=== PATIENT | female | born 1980 | race African-American/Black ===

== ENCOUNTER 2018-07-09 07:22 | Inpatient (IN) | payer OTHER, MEDICAID ==
[~2018-07-09] VITALS: Ht 160 cm; Wt 90.7 kg
[2018-07-09] MEDS ORDERED: PREN-142 PO (07:49)
[2018-07-09] MEDS ORDERED: FERR325T6 MT (07:50)
[2018-07-09] MEDS ORDERED: FOLI-43 PO (07:51)
[2018-07-09] MEDS ORDERED: ALD500 GT (07:52)
[2018-07-09] MEDS ORDERED: METHYLDOPA 250MG TABLET PO SCH (08:30)
[2018-07-09] MEDS: PRENATAL VIT/FE FUMARATE/FA TABLET PO SCH (08:41)
[2018-07-09 08:43] LABS: HEMATOCRIT 36.3 % (36.0-48.0); HEMOGLOBIN 12.3 g/dL (12.0-16.0); MEAN CORPUSCULAR HEMOGLOBIN 28.4 pg (28.0-32.0); MEAN CORPUSCULAR VOLUME 84.1 fL (81.0-99.0); PLATELET 117 x1000/uL (130-400); RED BLOOD CELL COUNT 4.31 mill/uL (4.2-5.4); RED CELL DISTRIBUTION WIDTH 14.7 % (11.6-14.6)
[2018-07-09] MEDS: FOLIC ACID 1MG TABLET PO SCH (09:00)
[2018-07-09] MEDS ORDERED: FOLIC ACID/VITAMIN B COMP W-C TABLET PO SCH (09:00)
[2018-07-09 09:01] LABS: CHLORIDE 107 mEq/L (98-107)
[2018-07-09 09:02] LABS: D-DIMER 7.91 mg/L FEU (<0.50); INR 0.9; PARTIAL THROMBOPLASTIN TIME 27.5 sec (23.4-31.0); PROTHROMBIN TIME 9.1 sec (9.1-11.1)
[2018-07-09 09:08] LABS: CLARITY URINE TURBID (CLEAR); COLOR URINE YELLOW (YELLOW); KETONES URINE NEGATIVE (NEGATIVE); LEUKOCYTE ESTERASE URINE 2+ (NEGATIVE); NITRITE URINE NEGATIVE (NEGATIVE); OCCULT BLOOD URINE 2+ (NEGATIVE); PROTEIN URINE 4+ (NEGATIVE); SPECIFIC GRAVITY URINE 1.029 (1.005-1.030)
[2018-07-09] MEDS ORDERED: NIFEDIPINE 10MG CAPSULE PO NR (11:15)
[2018-07-09] MEDS ORDERED: METHYLDOPA 500MG TABLET PO SCH (14:00)
[2018-07-09] MEDS: LACTATED RINGERS 1,000 ML IV SCH (15:14)
[2018-07-09 17:37] LABS: CHLORIDE 105 mEq/L (98-107)
[2018-07-09 17:51] LABS: D-DIMER 7.8 mg/L FEU (<0.50); INR 0.9; PARTIAL THROMBOPLASTIN TIME 28.7 sec (23.4-31.0); PROTHROMBIN TIME 9.3 sec (9.1-11.1)
[2018-07-09] MEDS: METHYLDOPA 250MG TABLET PO SCH (20:23)
[2018-07-09] MEDS: ACETAMINOPHEN 325MG TABLET PO PRN (20:24)
[2018-07-10] MEDS: ACETAMINOPHEN 325MG TABLET PO PRN ×4 (02:49→23:01)
[2018-07-10] MEDS: FERROUS SULFATE 325MG TABLET PO SCH (08:24)
[2018-07-10] MEDS: LACTATED RINGERS 1,000 ML IV SCH (08:24)
[2018-07-10] MEDS: PRENATAL VIT/FE FUMARATE/FA TABLET PO SCH (08:24)
[2018-07-10] MEDS: METHYLDOPA 250MG TABLET PO SCH ×2 (08:29→20:27)
[2018-07-10] MEDS: BETAMETHASONE ACET/BETAMET 30 MG/5 ML VIAL IM SCH (10:26)
[2018-07-10 12:24] LABS: CHLORIDE 108 mEq/L (98-107)
[2018-07-10 12:34] LABS: BASOPHILS % 0.5 % (0.0-2.0); EOSINOPHILS % 2.4 % (0.0-5.0); HEMATOCRIT. 32.8 % (36.0-48.0); LYMPHOCYTES % 21.5 % (20.0-50.0); MEAN CORPUSCULAR HEMOGLOBIN 28.7 pg (28.0-32.0); MEAN CORPUSCULAR VOLUME 85.4 fL (81.0-99.0); MEAN PLATELET VOLUME 8.1 fl (7.4-10.4); MONOCYTES % 10.9 % (2.0-8.0); NEUTROPHILS % 64.7 % (40.0-76.0); PLATELET 60 x1000/uL (130-400); RED BLOOD CELL COUNT 3.84 mill/uL (4.2-5.4); RED CELL DISTRIBUTION WIDTH 15.2 % (11.6-14.6)
[2018-07-10 12:38] LABS: D-DIMER 12.69 mg/L FEU (<0.50); INR 0.9; PARTIAL THROMBOPLASTIN TIME 27.2 sec (23.4-31.0); PROTHROMBIN TIME 9.4 sec (9.1-11.1)
[2018-07-10 13:07] LABS: PLATELET ESTIMATE DECREASED
[2018-07-10] MEDS ORDERED: MAGNESIUM 4 G PREMIX 100 ML IV NR (13:30)
[2018-07-10] MEDS ORDERED: MAGNESIUM 20 G PREMIX (L & D) 500 ML IV ONE (13:34)
[2018-07-10] MEDS: MAGNESIUM 20 G PREMIX (L & D) 500 ML IV SCH ×2 (13:35→20:29)
[2018-07-10 16:28] LABS: *AMPHETAMINES SCREEN URINE NEGATIVE (NEGATIVE); *BARBITURATES SCREEN URINE NEGATIVE (NEGATIVE); *BENZODIAZEPINES SCREEN URINE NEGATIVE (NEGATIVE); *COCAINE SCREEN URINE NEGATIVE (NEGATIVE); METHADONE URINE SCREEN NEGATIVE (NEGATIVE); OPIATES URINE SCREEN NEGATIVE (NEGATIVE); PHENCYCLIDINE URINE SCREEN NEGATIVE (NEGATIVE)
[2018-07-10 16:59] LABS: CANNABINOID URINE SCREEN PRESUMTIVE POSITIVE (NEGATIVE)
[2018-07-10 19:18] LABS: HEPATITIS B SURFACE ANTIGEN NEGATIVE
[2018-07-11] MEDS: LACTATED RINGERS 1,000 ML IV SCH ×2 (01:00→11:55)
[2018-07-11] MEDS: ACETAMINOPHEN 325MG TABLET PO PRN ×2 (05:24→17:34)
[2018-07-11] MEDS: FERROUS SULFATE 325MG TABLET PO SCH ×2 (08:48→21:06)
[2018-07-11] MEDS: FOLIC ACID 1MG TABLET PO SCH (08:49)
[2018-07-11] MEDS: PRENATAL VIT/FE FUMARATE/FA TABLET PO SCH (08:49)
[2018-07-11] MEDS: METHYLDOPA 250MG TABLET PO SCH ×2 (09:07→21:07)
[2018-07-11] MEDS: BETAMETHASONE ACET/BETAMET 30 MG/5 ML VIAL IM SCH (10:17)
[2018-07-11 11:38] LABS: HEMATOCRIT 34.7 % (36.0-48.0); HEMOGLOBIN 11.9 g/dL (12.0-16.0); MEAN CORPUSCULAR HEMOGLOBIN 28.7 pg (28.0-32.0); RED BLOOD CELL COUNT 4.13 mill/uL (4.2-5.4); RED CELL DISTRIBUTION WIDTH 15.2 % (11.6-14.6)
[2018-07-11 11:43] LABS: PLATELET 105 x1000/uL (130-400)
[2018-07-11 14:01] LABS: FIBRINOGEN 602 mg/dL (200-400); INR 0.9; PARTIAL THROMBOPLASTIN TIME 27.5 sec (23.4-31.0)
[2018-07-11 14:08] LABS: PROTHROMBIN TIME < 9.0 sec (9.1-11.1)
[2018-07-11] MEDS ORDERED: MISOPROSTOL 100MCG TABLET VG PRN (15:00)
[2018-07-11] MEDS: MAGNESIUM 20 G PREMIX (L & D) 500 ML IV SCH ×2 (17:00→18:11)
[2018-07-11] MEDS: MISOPROSTOL 100MCG TABLET VG SCH (19:57)
[2018-07-12] MEDS: ACETAMINOPHEN 325MG TABLET PO PRN (00:17)
[2018-07-12] MEDS: LACTATED RINGERS 1,000 ML IV SCH ×2 (00:29→12:09)
[2018-07-12] MEDS: MISOPROSTOL 100MCG TABLET VG SCH ×2 (00:31→04:14)
[2018-07-12] MEDS: BUTORPHANOL TARTRATE 2 MG/ML VIAL IV PRN ×2 (02:14→06:13)
[2018-07-12] MEDS: DEXT 5%/LR + PITOCIN 20UNITS/L 1,000 ML IV SCH ×2 (05:52→15:26)
[2018-07-12] MEDS: METHYLDOPA 250MG TABLET PO SCH ×2 (08:58→20:55)
[2018-07-12] MEDS: PRENATAL VIT/FE FUMARATE/FA TABLET PO SCH (08:59)
[2018-07-12] MEDS: FOLIC ACID 1MG TABLET PO SCH (08:59)
[2018-07-12] MEDS: FERROUS SULFATE 325MG TABLET PO SCH (08:59)
[2018-07-12] MEDS ORDERED: BUPIVACAINE HCL/NS/PF EPIDURAL 100 ML EP ONE (10:45)
[2018-07-12] MEDS ORDERED: FENTANYL CITRATE/PF 50MCG/ML 2ML VIAL ONE (14:22)
[2018-07-12] MEDS ORDERED: PROPOFOL 200MG/20ML VIAL IV ONE (14:59)
[2018-07-12] MEDS ORDERED: ONDANSETRON HCL 4MG/2ML INJ ONE (15:09)
[2018-07-12] MEDS ORDERED: MIDAZOLAM HCL 2 MG/2 ML VIAL ONE (15:10)
[2018-07-12] MEDS ORDERED: MAGNESIUM 20 G PREMIX (L & D) 500 ML IV SCH (15:26)
[2018-07-12] MEDS ORDERED: LANOLIN OINT 0.25 GM TUBE TOP PRN (15:30)
[2018-07-12] MEDS ORDERED: ONDANSETRON HCL 4MG/2ML INJ IV PRN ×2 (15:30→16:00)
[2018-07-12] MEDS ORDERED: BISACODYL 10MG SUPP PR PRN (15:30)
[2018-07-12] MEDS ORDERED: HEMORRHOIDAL SUPP PR PRN (15:30)
[2018-07-12 15:59] LABS: CHLORIDE 104 mEq/L (98-107)
[2018-07-12] MEDS ORDERED: DIPHENHYDRAMINE 50MG/ML VIAL IV PRN (16:00)
[2018-07-12] MEDS ORDERED: HYDROMORPHONE HCL/PF 2MG/ML CPJ IV PRN (16:00)
[2018-07-12] MEDS ORDERED: MEPERIDINE HCL/PF 25MG/ML CPJ IV PRN (16:00)
[2018-07-12] MEDS ORDERED: KETOROLAC 30MG/ML VIAL IV PRN (16:00)
[2018-07-12] MEDS: MAGNESIUM 20 G PREMIX (L & D) 500 ML IV SCH (17:09)
[2018-07-12] MEDS: KETOROLAC 30MG/ML VIAL IV SCH (17:58)
[2018-07-12 18:55] VITALS: BP 157/91
[2018-07-12 21:00] VITALS: BP 158/90
[2018-07-12] MEDS ORDERED: DIPHENHYDRAMINE 25MG CAPSULE PO PRN (21:00)
[2018-07-13] VITALS (8 sets, daily range): BP systolic 135–158; BP diastolic 80–96
[2018-07-13] MEDS: DEXT 5%/LR + PITOCIN 20UNITS/L 1,000 ML IV SCH (05:53)
[2018-07-13] MEDS: KETOROLAC 30MG/ML VIAL IV SCH ×3 (05:55→12:17)
[2018-07-13] MEDS ORDERED: FERROUS SULFATE 325MG TABLET PO SCH (07:30)
[2018-07-13] MEDS: FERROUS SULFATE 325MG TABLET PO SCH ×3 (08:23→17:45)
[2018-07-13] MEDS: SIMETHICONE 80MG TABLET CHEW PO SCH ×3 (08:23→17:41)
[2018-07-13] MEDS: PRENATAL VIT/FE FUMARATE/FA TABLET PO SCH (08:23)
[2018-07-13] MEDS: ACETAMINOPHEN 325MG TABLET PO PRN ×2 (08:24→15:10)
[2018-07-13] MEDS: FOLIC ACID 1MG TABLET PO SCH (08:24)
[2018-07-13] MEDS: METHYLDOPA 250MG TABLET PO SCH ×2 (08:26→21:28)
[2018-07-13] MEDS ORDERED: PRENATAL VIT/FE FUMARATE/FA TABLET PO SCH (09:00)
[2018-07-13 10:05] LABS: BASOPHILS % 0.1 % (0.0-2.0); EOSINOPHILS % 0.1 % (0.0-5.0); HEMATOCRIT. 34.1 % (36.0-48.0); HEMOGLOBIN. 11.2 g/dL (12.0-16.0); LYMPHOCYTES % 11.9 % (20.0-50.0); MEAN CORPUSCULAR HEMOGLOBIN 28.1 pg (28.0-32.0); MEAN CORPUSCULAR VOLUME 85.4 fL (81.0-99.0); MEAN PLATELET VOLUME 8.2 fl (7.4-10.4); MONOCYTES % 7.8 % (2.0-8.0); NEUTROPHILS % 80.1 % (40.0-76.0); PLATELET 140 x1000/uL (130-400); RED BLOOD CELL COUNT 3.99 mill/uL (4.2-5.4); RED CELL DISTRIBUTION WIDTH 15.2 % (11.6-14.6)
[2018-07-13] MEDS: MAGNESIUM 20 G PREMIX (L & D) 500 ML IV SCH (10:10)
[2018-07-13] MEDS: IBUPROFEN 400MG TABLET PO PRN (17:41)
[2018-07-13] MEDS: ACETAMINOPHEN WITH CODEINE 300/30MG TABLET PO PRN ×2 (21:29→21:38)
[2018-07-13] MEDS: DOCUSATE SODIUM 100MG CAPSULE PO SCH (21:30)
[2018-07-14] VITALS (7 sets, daily range): BP systolic 139–170; BP diastolic 92–103
[2018-07-14] MEDS: IBUPROFEN 400MG TABLET PO PRN (01:00)
[2018-07-14] MEDS: HYDROCODONE/ACETAMINOPHEN 5/325MG TABLET PO PRN ×4 (07:56→23:01)
[2018-07-14] MEDS: PRENATAL VIT/FE FUMARATE/FA TABLET PO SCH (09:08)
[2018-07-14] MEDS: FERROUS SULFATE 325MG TABLET PO SCH ×3 (09:09→17:30)
[2018-07-14] MEDS: SIMETHICONE 80MG TABLET CHEW PO SCH ×4 (09:10→20:14)
[2018-07-14] MEDS: METHYLDOPA 250MG TABLET PO SCH ×3 (09:10→22:40)
[2018-07-14] MEDS: FOLIC ACID 1MG TABLET PO SCH (09:10)
[2018-07-14] MEDS: ACETAMINOPHEN WITH CODEINE 300/30MG TABLET PO PRN ×3 (15:24→21:58)
[2018-07-14] MEDS: DOCUSATE SODIUM 100MG CAPSULE PO SCH (21:00)
[2018-07-15] VITALS (8 sets, daily range): BP systolic 129–180; BP diastolic 84–123
[2018-07-15] MEDS: METHYLDOPA 250MG TABLET PO SCH (06:16)
[2018-07-15] MEDS: HYDROCODONE/ACETAMINOPHEN 5/325MG TABLET PO PRN ×2 (06:23→18:39)
[2018-07-15] MEDS: FERROUS SULFATE 325MG TABLET PO SCH ×3 (07:30→17:30)
[2018-07-15] MEDS ORDERED: METHYLDOPA 500MG TABLET PO SCH (08:45)
[2018-07-15] MEDS ORDERED: METHYLDOPA 250MG TABLET PO SCH (09:50)
[2018-07-15] MEDS: SIMETHICONE 80MG TABLET CHEW PO SCH ×4 (09:58→19:57)
[2018-07-15] MEDS: FOLIC ACID 1MG TABLET PO SCH (09:58)
[2018-07-15] MEDS: PRENATAL VIT/FE FUMARATE/FA TABLET PO SCH (09:58)
[2018-07-15] MEDS: ACETAMINOPHEN WITH CODEINE 300/30MG TABLET PO PRN ×4 (09:59→20:21)
[2018-07-15] MEDS ORDERED: LABETALOL HCL 200MG TABLET PO NR (11:30)
[2018-07-15] MEDS: IBUPROFEN 400MG TABLET PO PRN ×2 (12:03→18:27)
[2018-07-15] MEDS: DOCUSATE SODIUM 100MG CAPSULE PO SCH (19:57)
[2018-07-17 04:10] LABS: CANNABINOID CONFIRMATION URINE Positive (.)
== END 2018-07-15 21:45 | disposition home or self-care (01) | DRG 540 ==
LOC: OBSVTOIN 07:22 → 8 EST LDRP 07:22 → 8EST 07-12 18:01
PROVIDERS: ADMIT Obstetrics & Gynecology; ATTEND Obstetrics & Gynecology
PROC: 10D00Z1 Extraction of Products of Conception, Low, Open Approach (ICD-10-PCS; principal; 2018-07-12)
DX: O13.3 Gestational [pregnancy-induced] hypertension without significant proteinuria, third trimester (principal); O60.13X0 Preterm labor second trimester with preterm delivery third trimester, not applicable or unspecified; O76 Abnormality in fetal heart rate and rhythm complicating labor and delivery; Z3A.33 33 weeks gestation of pregnancy; I16.0 Hypertensive urgency; O14.24 HELLP syndrome, complicating childbirth; Z82.49 Family history of ischemic heart disease and other diseases of the circulatory system
CPT/HCPCS: 36415; 76805; 76815; 76818; 80076; 80305; 80349; 82575; 83735; 84156; 84550; 85027; 85379; 85384; 86592; 86703; 86762; 86850; 86900; 87340; 88307; 96360; 96361; 99281; G0378; J0595; J0702; J1885; J2250; J2405; J2590; J2704; J3010; J3475; J3490